=== PATIENT | female | born 1980 | race Hispanic/Latino ===

== ENCOUNTER 2025-04-12 20:27 | Emergency (ER) | payer BC ==
[~2025-04-12] VITALS: Ht 170.2 cm; Wt 124.7 kg
[~2025-04-12 20:27] MED LIST: ONDANSETRON ODT4 MG PO; PANTOPRAZOLE SO40 MG PO
[2025-04-12 20:57] VITALS: PULSE 89; RESP 17; TEMP 97.7; O2SAT 97
[2025-04-12] MEDS ORDERED: TYLENOL325 MG PO (21:09)
[2025-04-12] MEDS ORDERED: IBUPROFEN600 MG PO (21:09)
[2025-04-12] MEDS: IBUPROFEN 200 MG TAB PO ONE (21:21)
[2025-04-12] MEDS: ACETAMINOPHEN 325 MG TAB PO ONE (21:22)
== END 2025-04-12 21:29 | disposition home or self-care (01) ==
LOC: FSED 20:35
DX: R51.9 Headache, unspecified (principal); S00.83XD Contusion of other part of head, subsequent encounter; V43.62XD Car passenger injured in collision with other type car in traffic accident, subsequent encounter; I10 Essential (primary) hypertension; E78.5 Hyperlipidemia, unspecified; F41.9 Anxiety disorder, unspecified; E28.2 Polycystic ovarian syndrome; Z98.84 Bariatric surgery status
CPT/HCPCS: 70450; 99283